=== PATIENT | female | born 1995 ===

== ENCOUNTER 2017-07-25 22:17 | Emergency (ER) | payer SELFPAY ==
[2017-07-25 22:57] VITALS: PULSE 98; RESP 18; TEMP 98.1; O2SAT 100
[2017-07-26] MEDS ORDERED: Sodium Chloride 0.9% 1,000 ML IV STA (00:06)
[2017-07-26 00:38] LABS: BASO # 0.1 K/uL (0.0-0.2); BASO % 0.6 % (0.0-2.0); EOS # 0.1 K/uL (0.0-0.7); EOS % 0.4 % (0.0-4.0); HEMOGLOBIN 12.5 g/dL (12.0-16.0); LYMPH # 1.7 K/uL (1.0-4.3); LYMPH % 12.4 % (20.0-40.0); MEAN CELL VOLUME 85.5 fl (81.0-99.0); MEAN CORPUSCULAR HEMOGLOBIN 28.1 pg (27.0-31.0); MEAN CORPUSCULAR HGB CONC 32.8 g/dL (33.0-37.0); MEAN PLATELET VOLUME 8.7 fl (7.2-11.7); MONO # 0.8 K/uL (0.0-0.8); MONO % 5.9 % (0.0-10.0); NEUT # 10.9 K/uL (1.8-7.0); NEUT % 80.7 % (50.0-75.0); RBC 4.45 Mil/uL (3.80-5.20); RED CELL DISTRIBUTION WIDTH 13.1 % (11.5-14.5); WHITE BLOOD COUNT 13.5 K/uL (4.8-10.8)
[2017-07-26 00:43] LABS: ALB/GLOB RATIO 1.6 (1.0-2.1); ALBUMIN 4.6 g/dL (3.5-5.0); ALT/SGPT 35 U/L (9-52); AST/SGOT 28 U/L (14-36); BLOOD UREA NITROGEN 13 mg/dl (7-17); CALCIUM 9.6 mg/dL (8.4-10.2); GFR AFRICAN-AMERICAN > 60; GFR NON-AFRICAN AMERICAN > 60; LIPASE 98 U/L (23-300)
--- NOTE | 2017-07-26 03:19 | ED PDOC ---
HPI: General Adult Time Seen by Provider: 07/25/17 23:31 Chief Complaint (Nursing): Abdominal Pain History Per: Patient Additional Complaint(s): Pt. states since Friday she's had ~10 episodes of non-bloody vomiting per day with 2-3 episodes of non-bloody watery diarrhea. Reports symptoms are associated with crampy lower abd pain which is intermittent. Denies fever, recent travel, [facility], melena, hematemesis, previous abd surgeries. Past Medical History Reviewed: Historical Data, Nursing Documentation, Vital Signs Vital Signs: Last Vital Signs Temp 98.1 F 07/25/17 22:54 Pulse 98 H 07/25/17 22:54 Resp 18 07/25/17 22:54 BP Pulse Ox 100 07/26/17 03:20 - Surgical History Surgical History: No Surg Hx - Family History Family History: States: No Known Family Hx - Home Medications Home Medications: Ambulatory Orders Medication Instructions Recorded Ciprofloxacin [Cipro] 500 mg PO BID #14 tab 07/26/17 Dicyclomine [Bentyl] 20 mg PO Q8 PRN #15 tab 07/26/17 Ondansetron ODT [Zofran ODT] 4 mg PO TID #20 odt 07/26/17 metroNIDAZOLE [Flagyl] 500 mg PO BID #14 tab 07/26/17 - Allergies Allergies/Adverse Reactions: Allergies Allergy/AdvReac Type Severity Reaction Status Date / Time apple Allergy throat Verified 07/25/17 22:54 swelling Review of Systems ROS Statement: Except As Marked, All Systems Reviewed And Found Negative Gastrointestinal: Positive for: Nausea, Vomiting, Abdominal Pain, Diarrhea Physical Exam - Physical Exam Appears: Positive for: Well, Non-toxic, No Acute Distress Skin: Positive for: Normal Color, Warm. Negative for: Rash Eye Exam: Positive for: Normal appearance, EOMI, PERRL. Negative for: Scleral icterus Neck: Positive for: Normal, Painless ROM Cardiovascular/Chest: Positive for: Regular Rate, Rhythm Respiratory: Positive for: CNT, Normal Breath Sounds Gastrointestinal/Abdominal: Positive for: Normal Exam, Bowel Sounds, Soft. Negative for: Tenderness Back: Negative for: L CVA Tenderness, R CVA Tenderness Neurologic/Psych: Positive for: Alert, Oriented - Laboratory Results Result Diagrams: 07/26/17 00:34 07/26/17 00:34 Urine POC: Negative Urine dip results: Negative for: Leukocyte Esterase, Blood, Nitrate - ECG O2 Sat by Pulse Oximetry: 100 - Progress ED Course And Treament: Labs, bentyl 20mg PO, pepcid 20mg IV, zofran 4mg ODT ordered. 0130 Reports pain is still present but has improved slightly. Abd remains soft and non-tender to deep palpation. CT abd/pelvis ordered. [address]558 CT abd/pelvis w/ IV contrast: 1. There is moderate amount of stool and gas in the colon with colonic wall thickening representing acute infectious inflammatory or stool related colitis. Pt. informed of results. Pain has resolved while in ED. Offered IV meds but refused and prefers to start meds by mouth instead. Advised to return to ED immediately if symptoms worsen. Disposition - Clinical Impression Clinical Impression: Gastroenteritis - Patient ED Disposition Is Patient to be Admitted: No - Disposition Referrals: [facility] [Outside] Disposition: Routine/Home Disposition Time: 06:00 Condition: IMPROVED Prescriptions: Ciprofloxacin [Cipro] 500 mg PO BID #14 tab Dicyclomine [Bentyl] 20 mg PO Q8 PRN #15 tab PRN Reason: abdominal pain metroNIDAZOLE [Flagyl] 500 mg PO BID #14 tab Ondansetron ODT [Zofran ODT] 4 mg PO TID #20 odt Forms: [email or web address] ([place])
[2017-07-26] MEDS ORDERED: Iohexol 300 100 ML IJ ONE (04:35)
--- NOTE | 2017-07-26 05:47 | CT ---
EXAM: CT Abdomen and Pelvis With Intravenous Contrast CLINICAL HISTORY: 22 years old, female; Pain; Other: Lower back pain; Additional info: Lower bad pain, diarrhea TECHNIQUE: Axial computed tomography images of the abdomen and pelvis with intravenous contrast. All CT scans at this facility use one or more dose reduction techniques, viz.: automated exposure control; ma/kV adjustment per patient size (including targeted exams where dose is matched to indication; i.e. head); or iterative reconstruction technique. 573 images are submitted. Coronal and sagittal reformatted images were created and reviewed. Axial reformatted images were created and reviewed. CONTRAST: 95 mL of omnipaque 300 administered intravenously. COMPARISON: No relevant prior studies available. FINDINGS: Lung bases: Unremarkable. No mass. No consolidation. Mediastinum: Possible small hiatal hernia. ABDOMEN: Liver: Fatty liver. Gallbladder and bile ducts: Unremarkable. No ductal dilation. Pancreas: Unremarkable. No mass. No ductal dilation. Spleen: Unremarkable. No splenomegaly. Adrenals: Unremarkable. No mass. Kidneys and ureters: Unremarkable. No solid mass. No hydronephrosis. Stomach and bowel: There is moderate amount of stool and gas in the colon with colonic wall thickening representing acute infectious inflammatory or stool related colitis. No obstruction. Appendix: Normal appendix. Suboptimally seen appendix secondary to unopacified bowel loops. PELVIS: Bladder: Partially decompressed bladder with bladder wall thickening. Correlation with urinalysis is recommended only if clinical cystitis is suspected. Reproductive: Anteriorly displaced uterus. ABDOMEN and PELVIS: Intraperitoneal space: Unremarkable. No free air. No significant fluid collection. Bones/joints: No acute fracture. No dislocation. Soft tissues: Unremarkable. Vasculature: Unremarkable. No abdominal aortic aneurysm. Lymph nodes: Unremarkable. No enlarged lymph nodes. IMPRESSION: 1. There is moderate amount of stool and gas in the colon with colonic wall thickening representing acute infectious inflammatory or stool related colitis.
== END 2017-07-26 06:09 | disposition home or self-care (01) ==
LOC: H.ER 22:17
DX: K52.9 Noninfective gastroenteritis and colitis, unspecified (principal)
CPT/HCPCS: 74177; 80053; 81025; 83690; 85025; 96374; 99284; J7040; Q9967